=== PATIENT | male | born 1955 | race Caucasian/White ===

== ENCOUNTER 2018-08-12 09:46 | Outpatient (CLI) | payer OTHER ==
[2018-08-12] VITALS (16 sets, daily range): BP systolic 105–134; BP diastolic 71–101; PULSE 75–101; TEMP 98.5
[~2018-08-12] VITALS: Ht 167.6 cm; Wt 64.3 kg
[~2018-08-12 09:46] MED LIST: AIRDUO RESPICL1 EAC2 IH; TYLENOL 500MG500 MG PO; XOPENEX HF0.045 MG/A IH
--- NOTE | 2018-08-12 10:35 | NUR ---
pt to ct per ambulation. Monitors applied.
--- NOTE | 2018-08-12 10:55 | NUR ---
specimen obtained by Dr Nieto and placed in formalin. Specimen labeled.
--- NOTE | 2018-08-12 11:15 | NUR ---
Pt to EU 11 per cart s/p lung bx. Pt resting well in room, guard at bedside.
--- NOTE | 2018-08-12 11:15 | NUR ---
Pt on O2 2L per NC at home. Pt currently on O2 2L per NC.
--- NOTE | 2018-08-12 13:45 | NUR ---
Pt has ambulated and keke PO intake s n/v.
--- NOTE | 2018-08-12 14:20 | NUR ---
PIV removed from R W with catheter intact.
--- NOTE | 2018-08-12 14:50 | NUR ---
Pt discharged per w/c by nurse with guard.
== END 2018-08-12 14:50 ==
LOC: COL.RAD 09:46
DX: R91.8 Other nonspecific abnormal finding of lung field (principal)
CPT/HCPCS: J2250; J3010